=== PATIENT | female | born 1950 | race Caucasian/White ===

== ENCOUNTER 2019-06-14 22:08 | Emergency (ER) | payer OTHER, MEDICARE ==
[2019-06-14] MEDS ORDERED: NORMAL SALINE 1000 ML 1,000 ML IV ONE (23:17)
--- NOTE | 2019-06-14 23:17 | ER Document Report ---
ED General - General Chief Complaint: High Blood Sugar Stated Complaint: SICKNESS Time Seen by Provider: 06/14/19 23:11 Primary Care Provider: NELSON MORA MD [Primary Care Provider] - Follow up as needed Notes: Patient is a 68-year-old female that comes to the emergency department for chief complaint of intermittent blurry vision, vague nausea, occasional mild dizziness and blurred vision, she states she just generally has not felt right for the past 3 days. She states that she went to her sister's house, her sister is a diabetic and she checked her blood glucose, this was over 500. Patient states she was told she was prediabetic but has never been diagnosed or treated for diabetes in the past. Patient denies chest pain, fever/chills, vomiting, shortness of breath, or any other complaints at this time. Past medical history of hypertension. TRAVEL OUTSIDE OF THE [place] IN LAST 30 DAYS: No - Related Data Allergies/Adverse Reactions: No Known Allergies Allergy (Unverified 05/20/14 15:21) Past Medical History - General Information source: Patient - Social History Smoking Status: Never Smoker Frequency of alcohol use: None Drug Abuse: None Lives with: Family Family History: Reviewed & Not Pertinent - Past Medical History Cardiac Medical History: Reports: Hx Hypertension Denies: Hx Coronary Artery Disease, Hx Heart Attack Pulmonary Medical History: Reports: Hx Pneumonia - January 2014 Denies: Hx Asthma, Hx Bronchitis, Hx COPD Neurological Medical History: Denies: Hx Cerebrovascular Accident, Hx Seizures Musculoskeletal Medical History: Reports Hx Arthritis - Immunizations Immunizations up to date: Yes Hx Diphtheria, Pertussis, Tetanus Vaccination: Yes Hx Pneumococcal Vaccination: 11/13/13 Review of Systems - Review of Systems Constitutional: See HPI EENT: No symptoms reported Cardiovascular: See HPI Respiratory: No symptoms reported Gastrointestinal: See HPI Genitourinary: No symptoms reported Female Genitourinary: No symptoms reported Musculoskeletal: No symptoms reported Skin: No symptoms reported Hematologic/Lymphatic: No symptoms reported Neurological/Psychological: No symptoms reported Physical Exam - Vital signs Vitals: Temp Pulse Resp BP Pulse Ox 97.7 F 57 L 18 152/83 H 97 06/14/19 22:39 06/14/19 22:39 06/14/19 22:39 06/14/19 22:39 06/14/19 22:39 - Notes Notes: GENERAL: Alert, interacts well. No acute distress. HEAD: Normocephalic, atraumatic. EYES: Pupils equal, round, and reactive to light. Extraocular movements intact. ENT: Oral mucosa moist, tongue midline. Oropharynx unremarkable. Airway patent. Nares patent. LUNGS: Clear to auscultation bilaterally, no wheezes, rales, or rhonchi. No respiratory distress. HEART: Regular rate and rhythm. No murmur ABDOMEN: Soft, non-tender. Non-distended. GENITOURINARY: Deferred EXTREMITIES: Moves all 4 extremities spontaneously. No edema, normal radial and dorsalis pedis pulses bilaterally. No cyanosis. BACK: no cervical, thoracic, lumbar midline tenderness. No saddle anesthesia, normal distal neurovascular exam. Moves all extremities in full range of motion. NEUROLOGICAL: Alert and oriented x3. Normal speech. Cranial nerves II through XII grossly intact. PSYCH: Normal affect, normal mood. SKIN: Warm, dry, normal turgor. No rashes or lesions noted. Course - Re-evaluation Re-evalutation: Patient is well-appearing, vital signs unremarkable except for borderline hypertension, no current complaints on my evaluation. CBC is unremarkable. Chemistry shows hyperglycemia at 363, anion gap and bicarbonate are normal, venous blood gas is normal. No signs of infection or distress otherwise. Clinical picture is most suggestive of patient having developed type 2 diabetes and secondary hyperglycemia. Patient treated with IV fluids, insulin, glucose is down trended. Discussed in details with patient. Patient will be discharged to follow-up with primary care for additional management of type 2 diabetes, she will be started on metformin, discussed dietary improvements, discussed return precautions. Patient states understanding and agreement. - Vital Signs Vital signs: Temp Pulse Resp BP Pulse Ox 97.6 F 58 L 16 144/64 H 97 06/15/19 05:52 06/15/19 05:52 06/15/19 05:52 06/15/19 05:52 06/15/19 05:52 - Laboratory Result Diagrams: 06/14/19 23:48 06/14/19 23:48 Laboratory results interpreted by me: 06/14/19 06/14/19 06/14/19 22:38 23:48 23:48 Sodium 131.8 L Glucose 363 H POC Glucose 375 H Urine Glucose (UA) >=500 H 06/15/19 06/15/19 06/15/19 01:25 02:59 04:07 Sodium Glucose POC Glucose 313 H 300 H 232 H Urine Glucose (UA) 06/15/19 05:15 Sodium Glucose POC Glucose 224 H Urine Glucose (UA) - EKG Interpretation by Me Additional EKG results interpreted by me: EKG shows sinus bradycardia at a rate of 52, flattened T waves inferiorly but this is not new, borderline T wave inversions anteriorly but this is also not new. No ST segment changes in consecutive leads. Borderline axis. QTC of 424. Discharge - Discharge Clinical Impression: Hyperglycemia Condition: Stable Disposition: HOME, SELF-CARE Additional Instructions: Your elevated blood sugars on evaluation tonight are consistent with type 2 diab etes. Your remaining work-up and evaluation is reassuring. I do recommend that you again the metformin prescribed, reduce carbohydrates in your diet, and follow-up closely with primary care for additional evaluation and treatment of diabetes. Return if you worsen including vomiting, faintness, or any other concerning or worsening symptoms. Prescriptions: Metformin HCl [Glucophage 500 mg Tablet] 500 mg PO BID #60 tablet Referrals: NELSON MORA MD [Primary Care Provider] - Follow up as needed
[2019-06-14 23:59] LABS: VENOUS BLOOD BASE EXCESS -0.8 mmol/L; VENOUS BLOOD HCO3 24.4 mmol/L (20-32); VENOUS BLOOD PCO2 42.3 mmHg (35-63); VENOUS BLOOD PH 7.38 (7.30-7.42)
[2019-06-15 00:05] LABS: ABSOLUTE EOSINOPHILS # (AUTO) 0.2 10^3/uL (0.0-0.6); ABSOLUTE LYMPHOCYTES (AUTO) 3.5 10^3/uL (0.5-4.7); ABSOLUTE MONOCYTES (AUTO) 0.6 10^3/uL (0.1-1.4); ABSOLUTE NEUT (AUTO) 3.4 10^3/uL (1.7-8.2); BASOPHILS % (AUTO) 0.6 % (0-2); HEMATOCRIT 37.6 % (36.0-47.0); HEMOGLOBIN 13.3 g/dL (12.0-15.5); LYMPHOCYTES % (AUTO) 44.8 % (13-45); MEAN CORPUSCULAR HEMOGLOBIN 31.8 pg (27.0-33.4); MEAN CORPUSCULAR HGB CONC 35.3 g/dL (32.0-36.0); MEAN CORPUSCULAR VOLUME 90 fl (80-97); MONOCYTES % (AUTO) 7.5 % (3-13); PLATELET COUNT 201 10^3/uL (150-450); RED BLOOD COUNT 4.18 10^6/uL (3.72-5.28); RED CELL DISTRIBUTION WIDTH 13.2 % (11.5-14.0); SEGMENTED NEUTROPHILS % (AUTO) 44.1 % (42-78); TOTAL CELLS COUNTED % (AUTO) 100 %; WHITE BLOOD COUNT 7.8 10^3/uL (4.0-10.5)
[2019-06-15 00:18] LABS: ALANINE AMINOTRANSFERASE 33 U/L (9-52); ALBUMIN 3.7 g/dL (3.5-5.0); ALKALINE PHOSPHATASE 107 U/L (38-126); ANION GAP 9 (5-19); ASPARTATE AMINO TRANSFERASE 31 U/L (14-36); BILIRUBIN,DIRECT 0.2 mg/dL (0.0-0.4); BILIRUBIN,TOTAL 0.7 mg/dL (0.2-1.3); BLOOD UREA NITROGEN 19 mg/dL (7-20); CALCIUM 9.5 mg/dL (8.4-10.2); CARBON DIOXIDE 24 mmol/L (22-30); CHLORIDE 99 mmol/L (98-107); GLUCOSE 363 mg/dL (75-110); SODIUM 131.8 mmol/L (137-145); TOTAL PROTEIN 6.5 g/dL (6.3-8.2)
[2019-06-15 00:30] LABS: APPEARANCE,URINE CLEAR; BILIRUBIN,URINE NEGATIVE (NEGATIVE); COLOR,URINE STRAW; GLUCOSE, URINE >=500 mg/dL (NEGATIVE); KETONES,URINE NEGATIVE (NEGATIVE); LEUKOCYTE ESTERASE,URINE NEGATIVE (NEGATIVE); NITRITE,URINE NEGATIVE (NEGATIVE); PROTEIN,URINE NEGATIVE (NEGATIVE); URINE SPECIFIC GRAVITY 1.006; UROBILINOGEN,URINE NEGATIVE mg/dL (<2.0)
[2019-06-15] MEDS ORDERED: INSULIN REG, HUMAN 100 UNIT/ML 3 ML VIAL (PYX) SUBCUT ONE (00:50)
[2019-06-15] MEDS ORDERED: NORMAL SALINE 1000 ML 1,000 ML IV ONE (03:01)
[2019-06-15 05:57] VITALS: BP 144/64
--- NOTE | 2019-06-15 06:32 | EKG REPORT ---
SEVERITY:- ABNORMAL ECG - SINUS BRADYCARDIA 52 NONSPECIFIC INTRAVENTRICULAR CONDUCTION DELAY CONSIDER OLD TRUE POST AR : Confirmed by: Solomon Skinner MD 15-Jun-2019 06:32:04
== END 2019-06-15 05:57 | disposition home or self-care (01) ==
LOC: ER 22:08
DX: R73.9 Hyperglycemia, unspecified (principal); H53.8 Other visual disturbances; R11.0 Nausea; R42 Dizziness and giddiness; I10 Essential (primary) hypertension
CPT/HCPCS: 93005; 99284; 96360; 96361; 36415; 82962; 85025; 80053; 81001; 82803; 93010; J1815; J7030 ×2

== ENCOUNTER → 2020-04-30 | Outpatient (CLI) | payer OTHER, MEDICARE ==
[2020-04-30 12:39] LABS: ANION GAP 7 (5-19); BLOOD UREA NITROGEN 20 mg/dL (7-20); CALCIUM 10.4 mg/dL (8.4-10.2); CARBON DIOXIDE 26 mmol/L (22-30); CHLORIDE 104 mmol/L (98-107); GLUCOSE 100 mg/dL (75-110); POTASSIUM 4.3 mmol/L (3.6-5.0)
== END ==
LOC: OD 11:21
PROVIDERS: ATTEND Anesthesiology
DX: Z01.812 Encounter for preprocedural laboratory examination (principal)
CPT/HCPCS: 36415; 80048

== ENCOUNTER → 2020-08-02 | Day surgery (SDC) | payer OTHER, MEDICARE ==
[~2020-08-02] MED LIST: CHONDR SU A NA/HYALUR INTRAOC KIT (SURGICARE) ONE; DORZOLAMIDE HCL 2%/TIMOLOL MALEAT 0.5% OPH SOLN 10 ML OS PRN; EPINEPHRINE INJ/PF 1 MG/1 ML AMPULE ONE; FENTANYL CITRATE INJ/PF 100 MCG/2 ML AMPUL ONE; KETOROLAC TROMETHAMINE 0.45% 4 DROP/0.4 ML DROPERETTE OS PRN; LIDOCAINE 1%/PHENYLEPHRINE 1.5% 0.8 ML SYRINGE ONE; MIDAZOLAM 2 MG/2 ML INJ ONE; ONDANSETRON HCL INJ/PF 4 MG/2 ML SDV ONE
[2020-08-02] MEDS: CYCLOPENTOLATE 0.2%/PHENYLEPHRINE 1% OPH SOLN 2 ML OS PRN ×3 (13:48→14:09)
[2020-08-02] MEDS: TROPICAMIDE 1% OPH SOLN 15 ML OS PRN ×3 (13:48→14:09)
[2020-08-02] MEDS: BESIFLOXACIN HCL 0.6% OPH SUSP 5 ML BOTTLE OS PRN ×2 (13:48→14:08)
[2020-08-02] MEDS: TETRACAINE HCL 0.5% OPH SOLN 4 ML OS PRN ×2 (13:49→14:08)
== END ==
LOC: SC 11:09
PROVIDERS: ATTEND Ophthalmology
DX: H25.812 Combined forms of age-related cataract, left eye (principal); Z53.9 Procedure and treatment not carried out, unspecified reason; I10 Essential (primary) hypertension; E11.9 Type 2 diabetes mellitus without complications; K21.9 Gastro-esophageal reflux disease without esophagitis; Z79.899 Other long term (current) drug therapy; Z79.84 Long term (current) use of oral hypoglycemic drugs; Z86.73 Personal history of transient ischemic attack (TIA), and cerebral infarction without residual deficits
CPT/HCPCS: 82962; J3490; J0171; J2250; J2405; J3010

== ENCOUNTER 2020-09-19 06:47 | Day surgery (SDC) | payer OTHER, MEDICARE ==
[~2020-09-19 06:47] MED LIST changes: -CHONDR SU A NA/HYALUR INTRAOC KIT (SURGICARE) ONE; -DORZOLAMIDE HCL 2%/TIMOLOL MALEAT 0.5% OPH SOLN 10 ML OS PRN; -EPINEPHRINE INJ/PF 1 MG/1 ML AMPULE ONE; -FENTANYL CITRATE INJ/PF 100 MCG/2 ML AMPUL ONE; -LIDOCAINE 1%/PHENYLEPHRINE 1.5% 0.8 ML SYRINGE ONE; -MIDAZOLAM 2 MG/2 ML INJ ONE; -ONDANSETRON HCL INJ/PF 4 MG/2 ML SDV ONE
[2020-09-19] MEDS ORDERED: MIDAZOLAM 2 MG/2 ML INJ ONE (07:06)
[2020-09-19] MEDS: TROPICAMIDE 1% OPH SOLN 15 ML OS PRN ×3 (07:07→07:29)
[2020-09-19] MEDS: TETRACAINE HCL 0.5% OPH SOLN 4 ML OS PRN ×3 (07:07→07:46)
[2020-09-19] MEDS: CYCLOPENTOLATE 0.2%/PHENYLEPHRINE 1% OPH SOLN 2 ML OS PRN ×3 (07:08→07:29)
[2020-09-19] MEDS: BESIFLOXACIN HCL 0.6% OPH SUSP 5 ML BOTTLE OS PRN ×4 (07:08→08:19)
[2020-09-19] MEDS ORDERED: ONDANSETRON HCL INJ/PF 4 MG/2 ML SDV ONE (07:29)
[2020-09-19] MEDS: LIDOCAINE 1%/PHENYLEPHRINE 1.5% 1 ML VIAL ONE ×2 (07:55→07:58)
[2020-09-19] MEDS: CHONDR SU A NA/HYALUR INTRAOC KIT (SURGICARE) ONE ×2 (07:55→07:58)
[2020-09-19] MEDS: EPINEPHRINE INJ/PF 1 MG/1 ML AMPULE ONE ×2 (07:55→07:58)
[2020-09-19] MEDS: DORZOLAMIDE HCL 2%/TIMOLOL MALEAT 0.5% OPH SOLN 10 ML OS PRN ×2 (07:59→08:19)
--- NOTE | 2020-09-26 19:35 | Operative Report ---
Operative Report[facility] Operative Report: PREOPERATIVE DIAGNOSIS: Nuclear, cortical and posterior subcapsular cataract, left eye POSTOPERATIVE DIAGNOSIS: Nuclear, cortical and posterior subcapsular cataracts, left eye PROCEDURE: Phacoemulsification and posterior chamber intraocular lens implant, left eye PROCEDURE DATE: [September 19, 2020] SURGEON: Nino Scherer MD Next DIRECTOR PRODUCT SAFETY: [] ANESTHESIA: Topical with IV sedation next COMPLICATIONS: None TISSUE TO PATHOLOGY: None ESTIMATED BLOOD LOSS: None INDICATION FOR SURGERY: [Ms. Moffett is a 69 year old female] Who presents to our clinic complaining of difficulty seeing, to read and drive due to blurry vision in both eyes. On examination, she was found to have best corrected visual acuity of [20/80] in the left eye. Ophthalmoscopy revealed a [+3] nuclear, [+2] corneal degeneration, [+3] posterior subcapsular cataract in the left eye with normal appearing cornea, vitreous, retina and optic nerve. I discussed the findings of the exam with the patient. We discussed the risks, benefits and alternatives of cataract extraction and intraocular lens implant in the left eye as a means of improving her vision. Risks that were discussed with the patient include infection, bleeding, retinal detachment and possible need for additional surgery. The patient understands that she may need to wear glasses after surgery. After discussion, the patient indicated her interest in having this procedure performed by signing an informed witness consent form. REPORT OF PROCEDURE: On the day of surgery, the patient was given a topical application to the left eye to consist of drop of Tetracaine 0.5%, tropicamide 1%, Cyclomidril, Besivance 0.6% and Acular 0.45%. The patient was then taken to the operating room in a supine position in a standard eye bed. Intravenous sedation was administered and she was prepped and draped in the standard fashion. A timeout was performed to confirm the surgical site. Attention was directed to the left eye where a paracentesis was created at the 5:30 position at the corneal limbus with a 15 degree blade. The anterior chamber was filled with 0.3 mL of 1% methylparaben free lidocaine and after 30 seconds the anterior chamber was filled with viscoelastic material. A 3 plane corneal incision was then made at the 3 o'clock position at the cornea limbus with a keratome. A continuous curvilinear capsulorrhexis was then made in the anterior capsule of the lens with a cystotome. The lens was hydrodissected using balanced saline solution. The lens nucleus was then removed by phacoemulsification using the stop and chop technique. CDE [11.92]. The remaining cortical material was then removed from the posterior capsular bag using irrigation and aspiration. The posterior capsule bag was filled with viscoelastic material and a lens implant was inserted into the posterior capsule bag. I have chosen for this case is a one piece acrylic lens from [employer] ([employer] model [QUD123], serial number [[id number]], lens power [19.0] positioned at 96 degrees using pen evans placed on the cornea while the patient was sitting upright and a Cortes ring. The lens was removed from its package, inspected and found to be free of defects it was loaded into a [place] D trampoline team coach. The trampoline team coach was passed through the temporal wound and the lens was advanced into the posterior capsular bag. The lens implant was centered in the posterior capsular bag with the Polly spatula the viscoelastic material was removed from the eye using irrigation and aspiration. The wounds were closed by stromal hydration and they were tested with the Weck-Eryn sponges and found to have no leaks. Intraocular pressure was assessed by manual palpitation found to be with in the physiologic range. The drape and speculum were removed. Drops of Durezol, Combigan and gatifloxacin were instilled in the left eye. The patient was then taken to the recovery room in good condition. The patient tolerated the procedure very well. The patient was given a prescription for gatifloxacin, Durezol and Ilervo to use every 2 hours while awake today. She will return my clinic tomorrow for follow-up evaluation.
== END 2020-09-19 08:58 | disposition home or self-care (01) ==
LOC: SC 06:47
PROVIDERS: ATTEND Ophthalmology
DX: H25.812 Combined forms of age-related cataract, left eye (principal); E11.36 Type 2 diabetes mellitus with diabetic cataract; Z79.84 Long term (current) use of oral hypoglycemic drugs; I10 Essential (primary) hypertension; K21.9 Gastro-esophageal reflux disease without esophagitis; Z86.73 Personal history of transient ischemic attack (TIA), and cerebral infarction without residual deficits
CPT/HCPCS: 66984; 82962; 00142; V2787; J2250; J3490 ×2; J0171; J2405; 142

== ENCOUNTER 2020-10-06 11:18 | Day surgery (SDC) | payer OTHER, MEDICARE ==
[~2020-10-06 11:18] MED LIST changes: +CHONDR SU A NA/HYALUR INTRAOC KIT (SURGICARE) ONE; +EPINEPHRINE INJ/PF 1 MG/1 ML AMPULE ONE; +KETOROLAC TROMETHAMINE 0.45% 4 DROP/0.4 ML DROPERETTE OD PRN; -KETOROLAC TROMETHAMINE 0.45% 4 DROP/0.4 ML DROPERETTE OS PRN; +LIDOCAINE 1%/PHENYLEPHRINE 1.5% 1 ML VIAL ONE; +LIDOCAINE 3.5% OPH GEL/PF 1 ML/TUBE OD PRN
[2020-10-06] MEDS: BESIFLOXACIN HCL 0.6% OPH SUSP 5 ML BOTTLE OD PRN ×4 (12:06→13:22)
[2020-10-06] MEDS: CYCLOPENTOLATE 0.2%/PHENYLEPHRINE 1% OPH SOLN 2 ML OD PRN ×3 (12:06→12:35)
[2020-10-06] MEDS: TETRACAINE HCL 0.5% OPH SOLN 4 ML OD PRN ×3 (12:06→12:37)
[2020-10-06] MEDS: TROPICAMIDE 1% OPH SOLN 15 ML OD PRN ×3 (12:06→12:35)
[2020-10-06] MEDS ORDERED: MIDAZOLAM 2 MG/2 ML INJ ONE (12:24)
[2020-10-06] MEDS ORDERED: FENTANYL CITRATE INJ/PF 100 MCG/2 ML AMPUL ONE (12:56)
[2020-10-06] MEDS: DORZOLAMIDE HCL 2%/TIMOLOL MALEAT 0.5% OPH SOLN 10 ML OD PRN ×2 (13:22)
[2020-10-06] MEDS: PREDNISOLONE ACETATE 1% OPH SUSP 5 ML OD PRN ×2 (13:22)
--- NOTE | 2020-10-06 20:22 | Operative Report ---
Operative Report[facility] Operative Report: PREOPERATIVE DIAGNOSIS: Nuclear, cortical and posterior subcapsular cataract, right eye POSTOPERATIVE DIAGNOSIS: Nuclear, cortical and posterior subcapsular cataracts, right eye PROCEDURE: Phacoemulsification and posterior chamber intraocular lens implant, right eye PROCEDURE DATE: [October 06, 2020 ] SURGEON: Nino Scherer MD Next TRAUMA PROGRAM MANAGER: [Shon Cunha] ANESTHESIA: Topical with IV sedation next COMPLICATIONS: None TISSUE TO PATHOLOGY: None ESTIMATED BLOOD LOSS: None INDICATION FOR SURGERY: [Ms. Moffett is a 69 year old female] Who presents to our clinic complaining of difficulty seeing, to read and drive due to blurry vision in both eyes. On examination, she was found to have best corrected visual acuity of [20/40] in the right eye. Ophthalmoscopy revealed a [+2] nuclear, [+2] corneal degeneration, [+2] posterior subcapsular cataract in the right eye with normal appearing cornea, vitreous, retina and optic nerve. I discussed the findings of the exam with the patient. We discussed the risks, benefits and alternatives of cataract extraction and intraocular lens implant in the right eye as a means of improving her vision. Risks that were discussed with the patient include infection, bleeding, retinal detachment and possible need for additional surgery. The patient understands that she may need to wear glasses after surgery. After discussion, the patient indicated her interest in having this procedure performed by signing an informed witness consent form. REPORT OF PROCEDURE: On the day of surgery, the patient was given a topical application to the right eye to consist of drop of Tetracaine 0.5%, tropicamide 1%, Cyclomidril, Besivance 0.6% and Acular 0.45%. The patient was then taken to the operating room in a supine position in a standard eye bed. Intravenous sedation was administered and she was prepped and draped in the standard fashion. A timeout was performed to confirm the surgical site. Attention was directed to the right eye where a paracentesis was created at the 11:30 position at the corneal limbus with a 15 degree blade. The anterior chamber was filled with 0.3 mL of 1% methylparaben free lidocaine and after 30 seconds the anterior chamber was filled with viscoelastic material. A 3 plane corneal incision was then made at the 9 o'clock position at the cornea limbus with a keratome. A continuous curvilinear capsulorrhexis was then made in the anterior capsule of the lens with a cystotome. The lens was hydrodissected using balanced saline solution. The lens nucleus was then removed by phacoemulsification using the stop and chop technique. CDE [9.84 ]. The remaining cortical material was then removed from the posterior capsular bag using irrigation and aspiration. The posterior capsule bag was filled with viscoelastic material and a lens implant was inserted into the posterior capsule bag. I have chosen for this case is a one piece acrylic lens from [employer] model [WKF119], serial number [[id number]], lens power [20.0/3.75 at 102 degrees]. The lens was removed from its package, inspected and found to be free of defects it was loaded into a Etohum D underwear trimmer. The underwear trimmer was passed through the temporal wound and the lens was advanced into the posterior capsular bag. The lens implant was centered in the posterior capsular bag with the Lyle spatula the viscoelastic material was removed from the eye using irrigation and aspiration. The wounds were closed by stromal hydration and they were tested with the Weck- Eryn sponges and found to have no leaks. Intraocular pressure was assessed by manual palpitation found to be with in the physiologic range. The drape and speculum were removed. Drops of Durezol, Combigan and gatifloxacin were instilled in the right eye. The patient was then taken to the recovery room in good condition. The patient tolerated the procedure very well. The patient was given a prescription for gatifloxacin, Durezol and Ilervo to use every 2 hours while awake today. She will return my clinic tomorrow for follow-up evaluation.
--- OUTSIDE RECORDS SUMMARY | 2020-10-07 15:22 | XMS REPORT ---
:1950 [facility] [address] [place] [address] Care Team Providers Name Role Phone Leodan Hernandez Primary Care Physician Unavailable Emy Hernandez MD Attending Clinician Unavailable Allergies, Adverse Reactions, Alerts Allergy Allergy Status Severity Reaction(s) Onset Inactive Treating C omments Name Type Date Date Clinician Statins Statins Active Myalgia Medications Ordered Filled Start Stop Current Ordering Indication Dosage Frequency Signature Comments Components Medication Medication Date Date Medication? Clinician (SIG) Name Name Accu-Chek Yes Leodan Quevedo Accu-Chek Nicole Plus 3-25 David GAMA Nicole Plus In Vitro 00:00: In Vitro Strip 00 Strip USE 1 STRIP TWICE DAILY dx: E11.9 Quantity: 60 Refills: 11 Leodan Hernandez MD Start : 0Active Micardis 40 No Leodan Quevedo QD Micardis MG Oral 8-16 David GAMA 40 MG Oral Tablet 00:00: Tablet 00 TAKE 1 TABLET ONCE DAILY. Quantity: 90 Refills: 3 Leodan Hernandez MD Start : 9Active Micardis 40 Yes Leodan Quevedo QD Micardis MG Oral 8-16 David GAMA 40 MG Oral Tablet 00:00: Tablet 00 TAKE 1 TABLET ONCE DAILY. Quantity: 90 Refills: 3 Leodan Hernandez MD Start : 9Active metFORMIN Yes Leodan Quevedo 1 Q0.5D metFORMIN HCl ER 500 3-15 David GAMA HCl ER 500 MG Oral 00:00: MG Oral Tablet 00 Tablet Extended Extended Release 24 Release 24 Hour Hour TAKE 1 TABLET TWICE DAILY Quantity: 180 Refills: 3 Leodan Hernandez MD Start : 9Active Terbinafine Yes Leodan Quevedo QD Terbinafi n HCl - 250 3-05 David GAMA e HCl - MG Oral 00:00: 250 MG Tablet 00 Oral Tablet TAKE 1 TABLET DAILY for one month Quantity: 30 Refills: 0 Leodan Hernandez MD Start : 27-Jan-2019 Active RABEprazole 2016- Yes Leodan Quevedo QD RABEprazo l Sodium 20 8-24 David GAMA e Sodium MG Oral 00:00: 20 MG Oral Tablet 00 Tablet Delayed Delayed Release Release TAKE 1 CAPSULE ONCE DAILY. Quantity: 90 Refills: 3 Leodan Hernandez MD Start : 7Active Naproxen 2015-11 Yes Leodan Quevedo Q12H Naproxen 500 MG Oral 0-11 David GAMA 500 MG Tablet 00:00: Oral 00 Tablet TAKE 1 TABLET EVERY 12 HOURS DAILY. Quantity: 40 Refills: 1 Leodan Hernandez MD Start : 6Active Ondansetron Yes Leodan Quevedo Ondansetr o 4 MG Oral - David GAMA n 4 MG Tablet 00:00: Oral Disintegrat 00 Tablet ing Disintegra ting PLACE ONE TABLET ON TONGUE AND ALLOW TO DISSOLVE EVERY 8 HOURS NEEDED Quantity: 10 Refills: 0 Leodan Hernandez MD Start : 6Active SUMAtriptan 2012-11 Yes Leodan Quevedo SUMAtript a Succinate David GAMA n 50 MG Oral 00:00: Succinate Tablet 00 50 MG Oral Tablet TAKE 1 TABLET BY MOUTH FOR MIGRAINE RELIEF. MAY REPEAT EVERY 2 HOURS . RS) Quantity: 27 Refills: 3 Leodan Hernandez MD Start : 3Active Meclizine Yes Leodan Quevedo Meclizine HCl - 25 MG 4-15 David GAMA HCl - 25 Oral Tablet 00:00: MG Oral 00 Tablet One to two tablets four times daily Quantity: 180 Refills: 3 Leodan Hernandez MD Start : 9Active Klor-Con 2006- Yes Leodan Quevedo 1 QD Klor-Con M20 20 MEQ 4-03 David GAMA M20 20 MEQ Oral Tablet 00:00: Oral Extended 00 Tablet Release Extended Release TAKE 1 TABLET DAILY Quantity: 90 Refills: 3 Leodan Hernandez MD Start : 25-Feb-2007 Active hydroCHLORO 2005- Yes Leodan Quevedo hydroCHLO R thiazide 25 2-16 David GAMA Othiazide MG Oral 00:00: 25 MG Oral Tablet 00 Tablet TAKE ONE TABLET BY MOUTH ONCE DAILY FOR BLOOD PRESSURE Quantity: 90 Refills: 3 Leodan Hernandez MD Start : 6Active Propranolol 2005-0 Yes Leodan Quevedo Propranol o HCl - 40 MG 2-15 David GAMA l HCl - 40 Oral Tablet 00:00: MG Oral 00 Tablet TAKE ONE TABLET BY MOUTH TWICE DAILY Quantity: 180 Refills: 3 Leodan Hernandez MD Start : 6Active atorvastati No atorvastat n 20 mg in 20 mg tablet tablet Duexis 800 No 1 TID Duexis 800 mg-26.6 mg mg-26.6 mg tablet Take tablet 1 tablet 3 Take 1 times a day tablet 3 by oral times a route. day by oral route. hydrochloro No hydrochlor thiazide 25 othiazide mg tablet 25 mg tablet Klor-Con 10 No Klor-Con mEq 10 mEq tablet,exte tablet,ext nded ended release release Klor-Con No Klor-Con M20 mEq M20 mEq tablet,exte tablet,ext nded ended release release Nexium 40 No Nexium 40 mg mg capsule,del capsule,de ayed layed release release ondansetron No ondansetro 4 mg n 4 mg disintegrat disintegra ing tablet ting tablet propranolol No propranolo 40 mg l 40 mg tablet tablet sumatriptan No sumatripta 50 mg n 50 mg tablet tablet telmisartan No telmisarta 20 mg n 20 mg tablet tablet telmisartan No telmisarta 80 mg n 80 mg tablet tablet Afluria No Afluria Quad Quad 60 mcg (15 60 mcg (15 mcg x mcg x 4)/0.5 mL 4)/0.5 mL intramuscul intramuscu ar susp. lar susp. [id number] EXPIRES 154 [id number] EXPIRES [id number] albuterol No albuterol sulfate HFA sulfate 90 HFA 90 mcg/actuati mcg/actuat on aerosol ion inhaler aerosol inhaler azithromyci No azithromyc n 250 mg in 250 mg tablet tablet metformin No metformin 500 mg 500 mg tablet tablet metformin No metformin ER 500 mg ER 500 mg tablet,exte tablet,ext nded ended release 24 release 24 hr hr Micardis 40 No Micardis mg tablet 40 mg tablet Micardis No Micardis HCT 40 HCT 40 mg-12.5 mg mg-12.5 mg tablet tablet Pneumovax No Pneumovax 23 25 23 25 mcg/0.5 mL mcg/0.5 mL injection injection syringe syringe ADMINISTERE ADMINISTER D BY [facility] ED BY [facility] potassium No potassium chloride ER chloride 20 mEq ER 20 mEq tablet,exte tablet,ext nded ended release(par release(pa t/cryst) rt/cryst) rabeprazole No rabeprazol 20 mg e 20 mg tablet,lara tablet,del yed release ayed release Virtussin No Virtussin AC 10 AC 10 mg-100 mg/5 mg-100 mL oral mg/5 mL liquid oral liquid hydrocodone No hydrocodon 5 e 5 mg-acetamin mg-acetami ophen 325 nophen 325 mg tablet mg tablet TAKE 1 TAB TAKE 1 TAB PO Q 6 HRS PO Q 6 HRS X 3 DAYS, X 3 DAYS, THEN 1 TAB THEN 1 TAB PO Q 8 HRS PO Q 8 HRS X 3 DAYS, X 3 DAYS, THEN 1 TAB THEN 1 TAB PO Q 12 HRS PO Q 12 X 1 DAY PRN HRS X 1 POST OP DAY PRN PAIN POST OP PAIN aspirin 81 No 1 BID aspirin 81 mg mg tablet,lara tablet,del yed release ayed Take 1 release tablet Take 1 twice a day tablet by oral twice a route as day by directed oral route for 14 as days. directed for 14 days. [place] 5 No [place] 5 mg-325 mg mg-325 mg tablet TAKE tablet 1 TAB PO Q TAKE 1 TAB 6 HRS X 3 PO Q 6 HRS DAYS, THEN X 3 DAYS, 1 TAB PO Q THEN 1 TAB 8 HRS X 3 PO Q 8 HRS DAYS, THEN X 3 DAYS, 1 TAB PO Q THEN 1 TAB 12 HRS X 1 PO Q 12 DAY PRN HRS X 1 POST OP DAY PRN PAIN POST OP PAIN Problems Condition Condition Condition Status Onset Resolution Last Treatin g Comments Name Details Category Date Date Treatment Clinician Date Derangement Derangement Problem Active 2018-11 of medial of Medial 2-16 meniscus Meniscus 00:00: 00 Sprain of Sprain of Problem Active 2018-11 knee Knee 2-04 00:00: 00 Pain in Pain in Problem Active 2012-11 limb Limb 12-20 00:00: 00 Sprain of Sprain of Problem Active 2012-11 shoulder Shoulder 12-20 and upper and Upper 00:00: arm Arm 00 Sprain of Sprain of Problem Active 2012-11 ankle Ankle 12-20 00:00: 00 Hiatal Hiatal Problem Active hernia hernia Allergic Allergic Problem Active rhinitis rhinitis Benign Benign Problem Active essential essential hypertensio hypertensio n n Encounter Encounter Problem Active for for immunizatio immunizatio n n Abnormal Abnormal Problem Active weight gain weight gain Onycholysis Onycholysis Problem Active due to due to Pseudomonas Pseudomonas infection infection B12 B12 Problem Active deficiency deficiency Migraine Migraine Problem Active headache headache Benign Benign Problem Active hypertensiv hypertensiv e heart e heart disease disease without without congestive congestive heart heart failure failure Esophageal Esophageal Problem Active reflux reflux Hypercholes Hypercholes Problem Active terolemia terolemia Type 2 Type 2 Problem Active diabetes diabetes mellitus mellitus Onychomycos Onychomycos Problem Active is due to is due to dermatophyt dermatophyt e e Alopecia Alopecia Problem Active Procedures Procedure Date / Time Performed Performing Clinician Devic e Knee Arthroscopy (Surg) 2020-05-03 00:00:00 XR, knee 2020-04-13 00:00:00 XR, knee 2019-10-28 00:00:00 MRI, knee, w/o contrast 2019-10-28 00:00:00 Tonsillectomy Hysterectomy Hand Surgery Cholecystectomy Carpal Tunnel Release History of Cholecystectomy History of Salpingo-oophorectomy Results This patient has no known results. Assessments Condition Name Status Diagnosis Date Treating Clinici an Knee pain Active 2020-06-20 11:11:31 Knee pain Active 2020-06-14 15:50:06 Stiffness of left knee Active 2020-06-14 15:50:06 Difficulty walking Active 2020-06-14 15:50:06 Knee pain Active 2020-06-02 14:41:14 Stiffness of left knee Active 2020-06-02 14:41:14 Difficulty walking Active 2020-06-02 14:41:14 Knee pain Active 2020-05-31 14:31:08 Stiffness of left knee Active 2020-05-31 14:31:08 Difficulty walking Active 2020-05-31 14:31:08 Knee pain Active 2020-05-26 14:34:38 Stiffness of left knee Active 2020-05-26 14:34:38 Difficulty walking Active 2020-05-26 14:34:38 Knee pain Active 2020-05-19 12:11:45 Stiffness of left knee Active 2020-05-19 12:11:52 Difficulty walking Active 2020-05-19 12:11:57 Pain in left knee Active 2020-05-09 11:54:28 Knee pain Active 2020-04-25 14:35:23 Tear of meniscus of knee Active 2020-04-25 14:35:46 Knee pain Active 2020-04-13 14:08:57 Tear of medial meniscus of knee Active 2020-04-13 15:02 :20 Tear of medial meniscus of knee Active 2019-12-30 14:02 :50 Tear of medial meniscus of knee Active 2019-11-11 16:31 :23 Derangement of medial meniscus Active 2019-11-09 08:43: 22 Sprain of knee Active 2019-10-28 14:04:43 Knee pain Active 2019-10-28 13:06:16 Abnormal glucose Active Benign hypertensive heart disease Active without congestive heart failure Hypercholesterolemia Active Onychomycosis due to dermatophyte Active Esophageal reflux Active Angina pectoris Active B12 deficiency Active Migraine headache Active Type 2 diabetes mellitus Active Benign hypertensive heart disease Active without congestive heart failure Hypercholesterolemia Active Esophageal reflux Active Benign hypertensive heart disease Active without congestive heart failure Type 2 diabetes mellitus Active Hypercholesterolemia Active Onychomycosis due to dermatophyte Active Esophageal reflux Active Alopecia Active Encounters Start End Encounter Type Admission Attending Care Care Enc nter Date/Time Date/Time Type Clinicians Facility Department ID 2020-09-05 2020-09-06 Appointment; [facility] [id number] 15:55:00 10:01:25 [facility] 2020-06-20 2020-06-20 [facility] [id number] 00:00:00 00:00:00 RANULFO HICKMANC: 1999 Arnoldo artis , [place]. [address] [address], Ph. 2020-06-14 2020-06-14 Joon Wade [facility] [id number] 00:00:00 00:00:00 MANAGER STYLE: 1999 Arnoldo artis , [place]. [address] [address], Ph. 2020-06-02 2020-06-02 Joon Wade [facility] [id number] 00:00:00 00:00:00 MANAGER STYLE: 1999 Arnoldo artis , [place]A. [address] [address], Ph. 2020-05-31 2020-05-31 Kylah Casillas [facility] [id number] 00:00:00 00:00:00 steff Jackson [place]. , [place]. [id number] DPT: [address] [address], Ph. 2020-05-30 2020-05-30 [facility] [id number] 15:45:00 15:45:00 Leodan Hernandez MD 2020-05-26 2020-05-26 Kylah Casillas [facility] [id number] 00:00:00 00:00:00 steff Jackson P.A. , P.A. [address]38 DPT: [address] [address], Ph. 2020-05-19 2020-05-19 Kylah ThompsonOrt [facility] [id number] 00:00:00 00:00:00 steff Jackson P.A. , P.A. [address] DPT: [address] [address], Ph. 2020-05-09 2020-05-09 Joon Gutierrez [facility] [id number] 00:00:00 00:00:00 II, PA-C: 1999 Arnoldo artis , [place].A. [address] [address], Ph. 2020-04-25 2020-04-25 Jay GutierrezOrt [facility] [id number] 00:00:00 00:00:00 II PA-C: 1999 Arnoldo artis , [place].A. [address] [address], Ph. 2020-04-13 2020-04-13 Nino Pettit [facility] [id number] 00:00:00 00:00:00 MD Laurita: Arnoldo artis , P.A. [address] [place] [phone], Ph. 2020-01-26 2020-01-26 [facility] [id number] 15:45:00 15:45:00 Leodan Hernandez MD 2019-12-30 2019-12-30 Nino Pettit [facility] [id number] 00:00:00 00:00:00 MD Laurita: Arnoldo artis , P.A. [address] [place] [phone], Ph. 2019-11-27 2019-11-27 Appointment; CLEMENTE Hernandez [facility] [id number] 15:45:00 15:45:00 Leodan Hernandez MD 2019-11-11 2019-11-11 Nino Pettit [facility] [id number] 00:00:00 00:00:00 MD Laurita: Arnoldo artis , [place].A. [address] [place] [phone], Ph. 2019-11-09 2019-11-09 Ayan Obregon [facility] [id number] 00:00:00 00:00:00 MD Amairani: Arnoldo artis , P.A. [address] [place] [phone], Ph. 2019-10-28 2019-10-28 Ayan Obregon [facility] [id number] 00:00:00 00:00:00 MD Amairani: Arnoldo artis , P.A. [address] [place] [phone], Ph. 2019-08-14 2019-08-14 Appointment; [facility] [id number] 10:00:00 10:00:00 Carline Ogden 2019-07-21 2019-07-21 Appointment; [facility] [id number] 15:00:00 15:00:00 Mammogram, [place] 2019-07-10 2019-07-10 Appointment; David [facility] [id number] 14:45:00 14:45:00 Leodan Hernandez MD 2019-02-13 2019-02-13 Appointment; [facility] [id number] 08:15:00 08:15:00 [facility] [place], Nuclear 3 2019-01-27 2019-01-27 Appointment; David [facility] [id number] 15:00:00 15:00:00 Leodan Hernandez MD 2018-11-10 2018-11-10 Appointment; David [facility] [id number] 15:45:00 15:45:00 Leodan Hernandez MD Family History Family Member Diagnosis Comments Start Date Stop Date Unspecified Family history of Coronary Family History Arteriosclerosis Unspecified Family history of Mitral Family History Regurgitation Unspecified Family history of Benign Essential Family History Hypertension Unspecified Family history of Type 2 Diabetes Family History Mellitus Mother Family history of Hypertension Sister Family history of Heart valve replaced Sister Family history of Heart disease Brother Family history of Heart valve replaced Brother Family history of Heart disease Immunizations Ordered Immunization Filled Immunization Date Status Commen ts Refusal Reason Name Name Fluzone High-Dose 2020-09-05 Completed Quadrivalent 0.7 ML 09:48:00 Intramuscular Suspension Prefilled Syringe Fluzone High-Dose 0.5 2019-01-27 Completed ML Intramuscular 15:43:00 Suspension Prefilled Syringe Influenza 2016-09-04 Completed 11:43:00 Prevnar 13 2016-07-19 Completed Intramuscular 16:07:00 Suspension Zoster (Zostavax) 2014-10-26 Completed 00:00:00 Pneumo (Prevnar) 2013-11-24 Completed 11:52:00 Influenza 2013-10-04 Completed 00:00:00 Influenza 2009-09-05 Completed 14:22:00 Social History Smoking Status Start Date Stop Date Never smoked tobacco (finding) Vital Signs Vital Name Observation Time Observation Value Comments Height 2020-06-20 00:00:00 63 [in_i] Height 2020-05-09 00:00:00 63 [in_i] BMI (Body Mass Index) 2020-04-25 00:00:00 32.8 kg/m2 Body Weight 2020-04-25 00:00:00 185 [lb_av] Height 2020-04-25 00:00:00 63 [in_i] Height 2020-04-13 00:00:00 63 [in_i] BMI (Body Mass Index) 2020-04-13 00:00:00 32.8 kg/m2 Body Weight 2020-04-13 00:00:00 185 [lb_av] Height 2019-12-30 00:00:00 63 [in_i] BMI (Body Mass Index) 2019-12-30 00:00:00 32.8 kg/m2 Body Weight 2019-12-30 00:00:00 185 [lb_av] Hospital Discharge Instructions NameDatesDetailsInstructions not documented1. Tear of medial meniscus of knee Discussion Note: None recorded. Patient educational handouts: No information available.1. Sprain of knee knee sprain: care instructions Duexis 800 mg-26.6 mg tablet MRI, knee,w/o contrast - Please provide patient disk of MRI. 2. Knee pain knee pain or injury: care instructions XR, knee Discussion Note: None recorded.
== END 2020-10-06 13:54 | disposition home or self-care (01) ==
LOC: SC 11:18
PROVIDERS: ATTEND Ophthalmology
DX: H25.812 Combined forms of age-related cataract, left eye (principal); E11.36 Type 2 diabetes mellitus with diabetic cataract; Z79.84 Long term (current) use of oral hypoglycemic drugs; I10 Essential (primary) hypertension; K21.9 Gastro-esophageal reflux disease without esophagitis; Z98.42 Cataract extraction status, left eye; R51.9 Headache, unspecified
CPT/HCPCS: 82962; 66984; V2787; J2250; J3490 ×2; J0171; J3010